=== PATIENT | male | born 1950 | race Caucasian/White ===

== ENCOUNTER 2017-12-03 14:35 | Inpatient (IN) | payer MEDICARE, OTHER ==
[2017-12-03 15:02] LABS: ADD MAN DIFF? NO
[2017-12-03 15:12] LABS: WHITE BLOOD COUNT 8.2 10^3/ul (4.8-10.8)
[2017-12-03 15:12] LABS: BASOPHILS % 0.1 % (0.0-2.0); EOSINOPHILS % 0.2 % (0.0-7.0); HEMOGLOBIN 15.6 g/dl (14.0-18.0); LYMPHOCYTES # 1.1 10^3/ul (0.8-2.9); LYMPHOCYTES % 13.6 % (15.0-51.0); MEAN CORPUSCULAR HEMOGLOBIN 29.2 pg (29.0-33.0); MEAN CORPUSCULAR HGB CONC 33.9 g/dl (32.0-37.0); MEAN PLATELET VOLUME 11.8 fl (7.4-10.4); MONOCYTE # 0.7 10^3/ul (0.3-0.9); MONOCYTES % 8.3 % (0.0-11.0); NEUTROPHIL # 6.3 10^3/ul (1.6-7.5); NEUTROPHILS % 77.4 % (39.0-77.0); PLATELET COUNT 149 10^3/UL (140-415); RED BLOOD COUNT 5.35 10^6/ul (4.70-6.10); RED CELL DISTRIBUTION WIDTH 14.8 % (11.5-14.5)
[2017-12-03] MEDS: SOD CHLORIDE 0.9% 1,000 ML IV (15:22)
[2017-12-03 15:32] LABS: INR 0.92; PARTIAL THROMBOPLASTIN TIME 24.1 Sec (25.0-35.0); PROTIME 12.4 Sec (11.9-14.9)
[2017-12-03 15:37] LABS: ALANINE AMINOTRANSFERASE 44 IU/L (13-69); ALBUMIN 4.5 g/dl (3.3-4.9); ALBUMIN/GLOBULIN RATIO 1.28; ALKALINE PHOSPHATASE 111 IU/L (42-121); ANION GAP 22 (8-16); ASPARTATE AMINO TRANSFERASE 40 IU/L (15-46); BILIRUBIN,INDIRECT 1.5 mg/dl (0-1.1); BILIRUBIN,TOTAL 1.5 mg/dl (0.2-1.3); BLOOD UREA NITROGEN 65 mg/dl (7-20); CALCIUM 9.3 mg/dl (8.4-10.2); CARBON DIOXIDE 23 mmol/L (21-31); CHLORIDE 93 mmol/L (97-110); CREATININE 2.46 mg/dl (0.61-1.24); GLUCOSE 271 mg/dl (70-220); LIPASE 72 U/L (23-300); POTASSIUM 4.1 mmol/L (3.5-5.1); SODIUM 134 mmol/L (135-144)
[2017-12-03 15:46] LABS: AMMONIA < 9 umol/l (9-30)
[2017-12-03 15:49] LABS: TROPONIN-I < 0.010 ng/ml (0.000-0.120)
[2017-12-03 16:17] LABS: ADD UMIC NO; UR ASCORBIC ACID NEGATIVE (NEGATIVE); UR BACTERIA FEW /HPF (NONE SEEN); UR BILIRUBIN (Dip) NEGATIVE (NEGATIVE); UR BLOOD (Dip) NEGATIVE (NEGATIVE); UR CLARITY SLIGHTLY CLOUDY (CLEAR); UR COLOR YELLOW (YELLOW); UR GLUCOSE (Dip) NEGATIVE (NEGATIVE); UR HYALINE CAST FEW /HPF (NONE SEEN); UR KETONES (Dip) NEGATIVE (NEGATIVE); UR LEUKOCYTE ESTERASE (Dip) NEGATIVE Leu/ul (NEGATIVE); UR NITRITE (Dip) NEGATIVE (NEGATIVE); UR RBC 0 /HPF (0-5); UR SPECIFIC GRAVITY (Dip) 1.015 (1.003-1.030); UR TOTAL PROTEIN (Dip) NEGATIVE (NEGATIVE); UR UROBILINOGEN (Dip) NEGATIVE (NEGATIVE); UR WBC 1 /HPF (0-5)
[2017-12-03] MEDS ORDERED: ACETAMINOPHEN 325 MG TAB PO (20:00)
[2017-12-03] MEDS ORDERED: ONDANSETRON 4 MG INJ IV (20:00)
[2017-12-03] MEDS ORDERED: GLUCOSE GEL 15 GRAM TUBE BUCCAL (22:00)
[2017-12-03] MEDS ORDERED: GLUCOSE GEL 15 GRAM TUBE PO ×2 (22:00)
[2017-12-03] MEDS ORDERED: DEXTROSE 50% 50 ML SYRINGE IV ×2 (22:00)
[2017-12-03] MEDS ORDERED: GLUCAGON 1 MG INJ IM (22:00)
[2017-12-03] MEDS: TACROLIMUS 1 MG CAP PO (22:30)
[2017-12-03] MEDS: METOPROLOL 25 MG TAB PO (22:30)
[2017-12-03] MEDS: TAMSULOSIN (SR) 0.4 MG CAP PO (23:24)
[2017-12-03] MEDS: TACROLIMUS 0.5 MG CAP PO (23:25)
[2017-12-03] MEDS: MYCOPHENOLATE 250 MG CAP PO (23:25)
[2017-12-03] MEDS: INSULIN ASPART [NOVOLOG] 3 ML PEN SC (23:33)
[2017-12-04] MEDS: ACCU-CHEK XX (02:00)
[2017-12-04] MEDS ORDERED: NON-FORMULARY/PATIENT OWN MED (Dulaglutide (Trulicity) 1.5 MG) SQ (05:30)
[2017-12-04 06:02] LABS: ADD MAN DIFF? NO
[2017-12-04 06:06] LABS: WHITE BLOOD COUNT 4.6 10^3/ul (4.8-10.8)
[2017-12-04 06:06] LABS: BASOPHILS % 0.2 % (0.0-2.0); EOSINOPHILS # 0.1 10^3/ul (0.0-0.5); EOSINOPHILS % 1.8 % (0.0-7.0); HEMATOCRIT 38.3 % (42.0-52.0); HEMOGLOBIN 12.7 g/dl (14.0-18.0); LYMPHOCYTES # 1.1 10^3/ul (0.8-2.9); MEAN CORPUSCULAR HEMOGLOBIN 29.2 pg (29.0-33.0); MEAN CORPUSCULAR HGB CONC 33.2 g/dl (32.0-37.0); MEAN PLATELET VOLUME 10.9 fl (7.4-10.4); MONOCYTE # 0.5 10^3/ul (0.3-0.9); MONOCYTES % 9.8 % (0.0-11.0); PLATELET COUNT 102 10^3/UL (140-415); RED BLOOD COUNT 4.35 10^6/ul (4.70-6.10); RED CELL DISTRIBUTION WIDTH 14.7 % (11.5-14.5)
[2017-12-04 06:27] LABS: ALANINE AMINOTRANSFERASE 31 IU/L (13-69); ALBUMIN 3.4 g/dl (3.3-4.9); ALBUMIN/GLOBULIN RATIO 1.09; ALKALINE PHOSPHATASE 89 IU/L (42-121); ANION GAP 11 (8-16); ASPARTATE AMINO TRANSFERASE 29 IU/L (15-46); BILIRUBIN,INDIRECT 0.8 mg/dl (0-1.1); BILIRUBIN,TOTAL 0.8 mg/dl (0.2-1.3); BLOOD UREA NITROGEN 55 mg/dl (7-20); CALCIUM 8.7 mg/dl (8.4-10.2); CARBON DIOXIDE 29 mmol/L (21-31); CHLORIDE 102 mmol/L (97-110); CHOLESTEROL 216 mg/dl (100-200); GLUCOSE 195 mg/dl (70-220); HDL CHOLESTEROL 27 mg/dl (30-78); LDL CHOLESTEROL,CALCULATED 154 mg/dl; MAGNESIUM 2.4 mg/dl (1.7-2.5); PHOSPHORUS 3.9 mg/dl (2.5-4.9); POTASSIUM 3.5 mmol/L (3.5-5.1); SODIUM 138 mmol/L (135-144); TOTAL PROTEIN 6.5 g/dl (6.1-8.1); TRIGLYCERIDES 174 mg/dl (0-149)
[2017-12-04 07:33] LABS: HEMOGLOBIN A1C 6.2 % (0-5.9)
[2017-12-04] MEDS ORDERED: NON-FORMULARY/PATIENT OWN MED (Mirabegron (Myrbetriq) 50 MG) PO (09:00)
[2017-12-04] MEDS: INSULIN ASPART [NOVOLOG] 3 ML PEN SC ×2 (09:35→12:40)
[2017-12-04] MEDS: MYCOPHENOLATE 250 MG CAP PO (09:36)
[2017-12-04] MEDS: TACROLIMUS 1 MG CAP PO (09:36)
[2017-12-04] MEDS: FOLIC ACID 1 MG TAB PO (09:37)
[2017-12-04] MEDS: ESCITALOPRAM 10 MG TAB PO (09:37)
[2017-12-04] MEDS: METOPROLOL 25 MG TAB PO (09:37)
[2017-12-04] MEDS: [UNRECOGNIZED DRUG - REMARK] XX (12:30)
[2017-12-04] MEDS: [UNRECOGNIZED DRUG - REMARK] XX (12:30)
[2017-12-04] MEDS: [UNRECOGNIZED DRUG - OTHER] XX (12:30)
[2017-12-04] MEDS ORDERED: REPAGLINIDE 1 MG TAB PO (17:25)
[2017-12-04] MEDS ORDERED: TAMSULOSIN (SR) 0.4 MG CAP PO (21:00)
[2017-12-04] MEDS ORDERED: INSULIN DEGLUDEC 22 UNIT SQ (21:00)
[2017-12-04] MEDS ORDERED: TACROLIMUS 0.5 MG CAP PO (21:00)
[2017-12-05] MEDS ORDERED: PANTOPRAZOLE (EC) 40 MG TAB PO (06:00)
[2017-12-05 15:37] LABS: TACROLIMUS 3.6 mcg/L
== END 2017-12-04 13:48 | disposition home or self-care (01) | DRG 683 ==
LOC: E/R 14:35 → MS1 19:39
DX: N17.9 Acute kidney failure, unspecified (principal); Z94.4 Liver transplant status; I12.9 Hypertensive chronic kidney disease with stage 1 through stage 4 chronic kidney disease, or unspecified chronic kidney disease; E11.22 Type 2 diabetes mellitus with diabetic chronic kidney disease; N18.9 Chronic kidney disease, unspecified; M17.12 Unilateral primary osteoarthritis, left knee
CPT/HCPCS: 36415; 76700; 80053; 80061; 80197; 81001; 81003; 82140; 82962; 83036; 83690; 83735; 84100; 84443; 84484; 85025; 85610; 85730; 93005; 93306; 93880; 99285-25